=== PATIENT | female | born 1990 | race Caucasian/White ===

== ENCOUNTER 2022-04-13 13:55 | Emergency (ER) | payer BC ==
[~2022-04-13] VITALS: Ht 154.9 cm; Wt 72.1 kg
[2022-04-13 14:10] VITALS: BP 158/97
--- NOTE | 2022-04-13 14:14 | NUR ---
AMBULATED TO BED 1 PLACED ON [facility]
--- NOTE | 2022-04-13 14:20 | NUR ---
Report received, care assumed, Pt assessed. Attached to gambling monitor, EKG done. Pt states onset today of palpitations, states was seen yesterday at urgent care for a cough and SOB, given a steroid shot, today tood a dose of albuterol inhaler and felt palpitations and a fast heart rate. Pt denies CP, resp easy, mm pink.
--- NOTE | 2022-04-13 14:30 | NUR ---
Dr GONG at bedside
--- NOTE | 2022-04-13 14:40 | NUR ---
IV started with 20 g in RAC, blood drawn and taken to lab. Pt tolerated well. flushes easily
[2022-04-13] MEDS ORDERED: NACL 0.9% 1,000 ML IV ONE ×2 (14:50→16:35)
[2022-04-13 15:08] LABS: BASOPHILS % (AUTO) 0.2 % (0.0-2.0); HEMATOCRIT 38.6 % (36-48); HEMOGLOBIN 13.1 g/dL (12.0-16.0); LYMPHOCYTES # (AUTO) 2.2 K/uL (2.5-16.5); MEAN CORPUSCULAR HEMOGLOBIN 29 pg (27-31); MEAN CORPUSCULAR HGB CONC 34 g/dL (33-37); MEAN CORPUSCULAR VOLUME 85.6 fL (80-94); MONOCYTES # (AUTO) 0.6 K/uL (0.8-1.0); MONOCYTES % (AUTO) 4.3 % (1.7-9.3); NEUTROPHILS # (AUTO) 10.7 K/uL (1.8-7.7); NEUTROPHILS % (AUTO) 79.5 % (42.2-75.2); PLATELET COUNT (AUTO) 318 K/uL (140-450); RED BLOOD CELL COUNT(AUTO) 4.51 MIL/uL (4.20-5.40); RED CELL DISTRIBUTION WIDTH 13.8 % (11.6-13.7); WHITE BLOOD COUNT (AUTO) 13.5 K/uL (4.8-10.8)
[2022-04-13 15:32] LABS: APPEARANCE,URINE HAZY (CLEAR); BILIRUBIN,URINE NEGATIVE (NEGATIVE); BLOOD, URINE 1+ (NEGATIVE); COLOR,URINE STRAW (YELLOW); LEUKOCYTE ESTERASE ,URINE NEGATIVE (NEGATIVE); NITRITE, URINE NEGATIVE (NEGATIVE); UGLUCOSE NEGATIVE (NEGATIVE)
[2022-04-13 15:42] LABS: ANION GAP 12.4 (8-16); CREATININE 0.7 mg/dL (0.6-1.3); FREE T4 (FREE THYROXINE) 1.12 ng/dL (0.76-1.46); POTASSIUM 3.4 mmol/L (3.5-5.1); THYROID STIMULATING HORMONE 0.59 uIU/mL (0.34-3.74); TOTAL BILIRUBIN 0.3 mg/dL (0.0-1.0)
[2022-04-13 15:51] LABS: WBC,URINE 0-5 /HPF (0-5)
--- NOTE | 2022-04-13 17:50 | NUR ---
Pt resting quietly, resp easy mm pink, no c/o at present
--- NOTE | 2022-04-13 18:49 | NUR ---
Patient discharged with v/s stable. Written and verbal after care instructions given and explained. Patient verbalized understanding. Ambulatory with to home. All questions addressed prior to discharge. Advised to follow up with PMD.
--- NOTE | 2022-04-13 18:51 | NUR ---
IV DC'd pressure held to site, no bleeding or hematoma
[2022-04-13 18:52] VITALS: BP 131/86
== END 2022-04-13 18:50 | disposition home or self-care (01) ==
LOC: MED 13:55
DX: J06.9 Acute upper respiratory infection, unspecified (principal); R00.2 Palpitations
CPT/HCPCS: 36415; 71045; 80053; 81001; 81025; 84439; 84443; 84484; 85025; 85379; 96360; 96361; 99285; J7030; Q0092